=== PATIENT | female | born 1935 ===

== ENCOUNTER 2016-03-31 15:50 | Outpatient (CLI) | payer MEDICARE ==
--- NOTE | 2016-03-31 16:32 | XRay Report ---
CHEST TWO VIEWS: 03/31/16 15:50:00 CLINICAL: Cough. COMPARISON: None FINDINGS: The heart is upper limits of normal in size. Median sternotomy wires. Aortic calcification and tortuosity. Normal pulmonary vessels. The lungs are normally expanded and clear on the frontal view. No airspace disease or pleural effusion. However, there is a nodular opacity on the lateral view that overlies the thoracic spine. IMPRESSION: No acute cardiopulmonary process.Questionable vertebral body lesion. Recommend CT chest.
== END 2016-03-31 15:51 | disposition home or self-care (01) ==
LOC: SPVIMAG 15:50
PROVIDERS: ATTEND Internal Medicine Hematology & Oncology
DX: R05 Cough (principal); I70.0 Atherosclerosis of aorta
CPT/HCPCS: 71020

== ENCOUNTER 2017-04-08 11:30 | Outpatient (CLI) | payer MEDICARE ==
--- NOTE | 2017-04-08 12:58 | XRay Report ---
XRAY CHEST TWO VIEWS: 04/08/17 11:30:00 CLINICAL: Cough. COMPARISON: 03/31/16 FINDINGS: Stable borderline cardiomegaly. Median sternotomy wires and normal pulmonary vessels. Stable aortic calcification and tortuosity. The lungs are normally expanded and clear on the frontal view.A stable nodular opacity is at T11 on the lateral view. IMPRESSION: No acute cardiopulmonary process.A stable nodular opacity at T11 on the lateral view is probably benign given that it hasn't changed in one year. Consider CT chest if it has not been done already.
== END 2017-04-08 11:31 | disposition home or self-care (01) ==
LOC: SPVIMAG 11:30
PROVIDERS: ATTEND Internal Medicine Hematology & Oncology
DX: R05 Cough (principal); I70.0 Atherosclerosis of aorta; Q25.46 Tortuous aortic arch; Z98.890 Other specified postprocedural states
CPT/HCPCS: 71046